=== PATIENT | male | born 2000 | race Caucasian/White ===

== ENCOUNTER 2018-09-03 07:50 | Day surgery (SDC) | payer OTHER, SELFPAY ==
--- NOTE | 2018-09-03 | TONS_PTH ---
PATIENT: EVELIO RODRIGUEZ [place] [facility] [place][id number] AGE/SX: 18/M ROOM: RE09/03/[address]: Dr. Darian Muñoz MD : 2000 BED: DIS: 09/03/2018 SPEC #: [id number] RECD: 09/03/18 13:37 STATUS: PENG NERISSA #: [id number] REMY: 09/03/18 00:[address]: Darian Muñoz DEPT: SURGICAL PATHOLOGY RECD BY: Vance Obregon ENTERED: 09/03/18 13:37 SP TYPE: TONSILS OTHR DR: Dr. Gt Berman MD Tissues: Tonsil, NOS Procedures: Surgery Specimen Level III HEADER OPERATION: Tonsillectomy PRE-OP DIAGNOSIS: Chronic tonsillitis TISSUE SUBMITTED: Tonsils - tie on right MICROSCOPIC DIAGNOSIS Bilateral tonsils: Reactive lymphoid hyperplasia, consistent with chronic tonsillitis. SJ:janneth 09/04/18 MICROSCOPIC DESCRIPTION Slides are reviewed. GROSS DESCRIPTION Received is one container labeled with the patient's name and designated tonsils - tie on right are two tonsils that in aggregate weigh 22.8 gm. The right tonsil has a tie on it and measures 4.5 x 3 x 2 cm. The left tonsil measures 4.5 x 2 x 2 cm. Both tonsils are similar in appearance. The external surfaces are pink-luevano, smooth, glistening and somewhat lobulated. Focally they are hemorrhagic, granular and bear cautery artifact. Serial cross sections through the tonsils reveal normal tonsillar architecture. Sections are submitted in two cassettes as follows: 1 - right tonsil, 2 - left tonsil. / MEGHANN:janneth 09/03/18 TC:3 [facility]: [id number] x2
[2018-09-03 08:23] VITALS: BP 144/88; PULSE 85; RESP 18; TEMP 37.3; O2SAT 100; BMI 32.8
--- NOTE | 2018-09-03 10:12 | PCM.OP.BLANK ---
Operative Report Date of Procedure: 09/03/18 Operative report on Espinoza Gonzales Procedure tonsillectomy Preoperative diagnosis chronic tonsillitis Postoperative diagnosis same Anesthesia endotracheal general Procedure patient was placed supine on the operating room table and after satisfactory endotracheal general anesthesia had been obtained sterile drapes were applied and the patient draped in the usual sterile manner. A Mariano-Dion mouthgag was placed in the oral cavity and the tongue retracted anteriorly. The nasopharynx was examined and was noted to be clean. Both tonsillar tissue was noted to be markedly hypertrophic. The left tonsil was held with tenaculum forceps and an incision made in the anterior tonsillar fold. The capsule was identified and the tonsil dissected inferiorly. At the base the tonsil was removed. Multiple bleeders were coagulated with the Bovie. The right tonsil was held with tenaculum forceps and an incision made in the anterior tonsillar fold. Capsule was identified and the tonsil dissected inferiorly. At the base the tonsil was removed. After meticulous hemostasis had been obtained in both tonsil fossa the hypopharynx was suctioned the Mariano-Dion mouth gag removed and the patient extubated and returned to the recovery room in satisfactory condition. Darian Muñoz MD
[2018-09-03 10:38] VITALS: BP 144/88; BP 165/85; PULSE 60; RESP 16; TEMP 36.3; O2SAT 95
[2018-09-03 10:45] VITALS: BP 144/88; BP 164/87; PULSE 82; RESP 16; O2SAT 95
[2018-09-03 11:00] VITALS: BP 144/88; BP 149/86; PULSE 77; RESP 16; O2SAT 100
[2018-09-03 11:12] VITALS: BP 144/88; BP 154/90; PULSE 75; RESP 16; TEMP 36.4; O2SAT 96
[2018-09-03] MEDS: oxyCODONE 5 MG Tablet PO (12:00)
[2018-09-03 12:09] VITALS: BP 138/92; BP 144/88; PULSE 71; RESP 18; TEMP 36.4; O2SAT 100
== END 2018-09-03 12:15 | disposition home or self-care (01) ==
LOC: SDC 07:51 → AC 07:54
PROVIDERS: Family Provider Family Medicine; PCP Family Medicine; Referring Provider Otolaryngology Otolaryngology/Facial Plastic Surgery; Visit Provider Otolaryngology Otolaryngology/Facial Plastic Surgery
PROC: (CPT 42826; principal; 2018-09-03 09:00)
DX: J35.01 Chronic tonsillitis (principal); K21.9 Gastro-esophageal reflux disease without esophagitis
CPT/HCPCS: 00170; 42826; 88304; J7120; J2405; J3490